=== PATIENT | female | born 1975 | race Two or more races ===

== ENCOUNTER 2021-06-01 21:15 | Inpatient (IN) | payer SELFPAY ==
[~2021-06-01 21:15] MED LIST: Iopamidol 370 76% 100 ML VIAL ONE
[2021-06-01 22:17] LABS: #Monocytes 1.2 thou/uL (0.11-0.59); #Neutrophils 5.6 thou/uL (1.40-6.50); %Basophils 0.3 % (0.0-1.0); %Eosinophils 0.1 % (0.0-10.0); %Lymphocytes 22.4 % (21.0-51.0); %Monocytes 13.8 % (0.0-10.0); %Neutrophils 63.3 % (42.0-75.0); Hemoglobin 6.1 g/dL (12.0-16.0); Mean Corpuscular HGB CONC 30.9 g/dL (32.0-36.0); Mean Corpuscular Hemoglobin 26.7 pg (27.0-31.0); Mean Corpuscular Volume 86.4 fL (78.0-98.0); Platelet Count 152 thou/uL (130-400); RBC Distribution Width 19.5 % (11.5-14.5); Red Blood Cell (RBC) Count 2.27 mill/uL (4.20-5.40); White Blood Cell (WBC) Count 8.9 thou/uL (4.8-10.8)
[2021-06-01 22:22] LABS: BHCG - Serum Negative (NEGATIVE); Pregs Control Background? CLEAR/WHITE (CLR/WHITE); Pregs Control Bar Appear? YES (CONTROL BAR)
[2021-06-01 22:39] LABS: ALT (SGPT) 23 U/L (8-55); AST (SGOT) 71 U/L (5-34); Albumin 1.9 g/dL (3.5-5.0); Alkaline Phosphatase 200 U/L (40-110); Anion Gap 13 mmol/L (10-20); BUN (Urea Nitrogen) 13 mg/dL (7.0-18.7); Bilirubin, Total 3.5 mg/dL (0.2-1.2); Calc. Creatinine Clearance 0 mL/min (70-130); Calcium 7.6 mg/dL (7.8-10.44); Carbon Dioxide 16 mmol/L (22-29); Chloride 105 mmol/L (98-107); Globulin 4.9 g/dL (2.4-3.5); Glucose 72 mg/dL (70-105); Lipase 99 U/L (8-78); Potassium 3.7 mmol/L (3.5-5.1); Protein, Total 6.8 g/dL (6.0-8.3); Sodium 130 mmol/L (136-145)
[2021-06-02] MEDS ORDERED: Fentanyl 100 MCG/2 ML VIAL ONE (00:47)
[2021-06-02] MEDS ORDERED: Ondansetron PF 4 MG/2 ML Vial ONE ×2 (00:47→13:12)
[2021-06-02 02:11] VITALS: BMI 21.4
[2021-06-02] MEDS ORDERED: Acetaminophen 325 MG TAB PO PRN (04:22)
[2021-06-02 04:26] LABS: Bilirubin Negative (Negative); Blood, Urine Negative (Negative); Clarity Clear (Clear); Glucose, Urine (Dipstick) Normal (Negative); Ketone, Urine Negative (Negative); Leukocyte Negative Leu/uL (Negative); Nitrite Negative (Negative); Protein, Urine (Dipstick) 30 mg/dL (Neg-Trace); WBC/HPF 0-3 HPF (0-3); pH, Urine 6.5 (5.0-9.0)
[2021-06-02 04:32] LABS: Specific Gravity, Urine Greater than 1.036 (1.002-1.036)
[2021-06-02 04:39] LABS: Bacteria/HPF None Seen HPF (None Seen); RBC/HPF 0-3 HPF (0-3)
[2021-06-02] MEDS ORDERED: traMADol HCl 50 MG TAB PO SCH (05:00)
[2021-06-02] MEDS ORDERED: traMADol HCl 50 MG TAB ONE (05:55)
[2021-06-02 06:30] LABS: INR-International Normal Ratio 1.2; Prothrombin Time 15.8 sec (12.0-14.7)
[2021-06-02 06:31] LABS: PTT 45.8 sec (22.9-36.1)
[2021-06-02] MEDS ORDERED: Furosemide 20 MG/2 ML VIAL SLOW IVP SCH (07:45)
[2021-06-02 08:30] LABS: Iron 9 ug/dL (50-170); Iron Binding Capacity, Total 214 mcg/dL (265-497)
[2021-06-02] MEDS ORDERED: Lidocaine 1% PF 5 ML VIAL ONE (09:32)
[2021-06-02] MEDS ORDERED: Sodium Bicarbonate 2.5 MEQ/5 ML VIAL ONE (09:32)
[2021-06-02 11:19] LABS: #Lymphocytes 1.5 thou/uL (1.20-3.40); #Monocytes 0.7 thou/uL (0.11-0.59); #Neutrophils 3.7 thou/uL (1.40-6.50); %Basophils 0.2 % (0.0-1.0); %Eosinophils 0.1 % (0.0-10.0); %Monocytes 11.2 % (0.0-10.0); %Neutrophils 62.5 % (42.0-75.0); Hemoglobin 8.8 g/dL (12.0-16.0); Mean Corpuscular HGB CONC 31.1 g/dL (32.0-36.0); Mean Corpuscular Hemoglobin 27.4 pg (27.0-31.0); Mean Corpuscular Volume 88.3 fL (78.0-98.0); Mean Platelet Volume 8.2 fL (7.4-10.4); Platelet Count 126 thou/uL (130-400); RBC Distribution Width 17.9 % (11.5-14.5); Red Blood Cell (RBC) Count 3.22 mill/uL (4.20-5.40); White Blood Cell (WBC) Count 5.9 thou/uL (4.8-10.8)
[2021-06-02 12:00] LABS: WBC/Nucleated-Auto (BF) 238 /cu.mm
[2021-06-02 12:10] LABS: BF Color Yellow; Body Fluid Source Ascites Body Fluid; Clarity Hazy (Clear); RBC Count-Automated (BF) 5 /cu.mm; Tube # EDTA
[2021-06-02 12:11] LABS: BF Segmented Neutrophils 7 %; Lymphocytes 6 %
[2021-06-02 12:12] LABS: Cell Count Non Hematic 87 %
[2021-06-02] MEDS: Ondansetron PF 4 MG/2 ML Vial IVP PRN ×2 (13:12→21:38)
[2021-06-02] MEDS ORDERED: Furosemide 20 MG/2 ML VIAL ONE (14:19)
[2021-06-02] MEDS ORDERED: Famotidine 20 MG TAB ONE (14:19)
[2021-06-02] MEDS: Famotidine 20 MG TAB PO SCH ×2 (14:21→20:32)
[2021-06-02] MEDS: Furosemide 20 MG/2 ML VIAL SLOW IVP SCH (14:24)
[2021-06-02] MEDS ORDERED: Iron Sucrose Complex 200 MG in Sodium Chloride 0.9% 100 ML IVPB SCH (16:30)
[2021-06-02] MEDS ORDERED: Iron, Sodium Ferric Gluconate 250 MG in Sodium Chloride 0.9% 250 ML 250 ML IVPB SCH (16:30)
[2021-06-02 16:43] LABS: Hemoglobin 9.2 g/dL (12.0-16.0)
[2021-06-02 22:07] LABS: SARS-CoV-2 PCR by NAA Indeterminate (NotDetected)
[2021-06-03] MEDS: Furosemide 20 MG/2 ML VIAL SLOW IVP SCH ×2 (05:15→15:11)
[2021-06-03 05:46] LABS: Anion Gap 12 mmol/L (10-20); BUN (Urea Nitrogen) 14 mg/dL (7.0-18.7); Calc. Creatinine Clearance 85 mL/min (70-130); Calcium 7.3 mg/dL (7.8-10.44); Carbon Dioxide 15 mmol/L (22-29); Chloride 107 mmol/L (98-107); Glucose 96 mg/dL (70-105); Potassium 3.7 mmol/L (3.5-5.1); Sodium 130 mmol/L (136-145)
[2021-06-03 06:02] LABS: #Lymphocytes 1.7 thou/uL (1.20-3.40); #Neutrophils 10.3 thou/uL (1.40-6.50); %Basophils 0.1 % (0.0-1.0); %Eosinophils 0.1 % (0.0-10.0); %Monocytes 7.8 % (0.0-10.0); Band 1 % (5-11); Hemoglobin 11.7 g/dL (12.0-16.0); Lymphocytes 5 % (21-51); MDiff Complete? YES; Mean Corpuscular HGB CONC 31.9 g/dL (32.0-36.0); Mean Corpuscular Hemoglobin 27.7 pg (27.0-31.0); Mean Corpuscular Volume 86.7 fL (78.0-98.0); Mean Platelet Volume 9.2 fL (7.4-10.4); Monocytes 6 % (0-10); Neutrophil 88 % (42-75); Platelet Count 100 thou/uL (130-400); Platelet Morphology Comment Appears Decreased; RBC Distribution Width 18.2 % (11.5-14.5); RBC Morphology Normal; Red Blood Cell (RBC) Count 4.23 mill/uL (4.20-5.40)
[2021-06-03] MEDS: Ferrous Sulfate 325 MG TAB PO SCH (08:32)
[2021-06-03] MEDS: Pantoprazole 40 MG VIAL IVP SCH (08:33)
[2021-06-03 09:15] LABS: ALT (SGPT) 22 U/L (8-55); AST (SGOT) 68 U/L (5-34); Albumin 1.7 g/dL (3.5-5.0); Alkaline Phosphatase 169 U/L (40-110); Bilirubin, Direct 2.6 mg/dL (0.1-0.3); Bilirubin, Total 3.7 mg/dL (0.2-1.2); Protein, Total 6.2 g/dL (6.0-8.3)
[2021-06-03] MEDS ORDERED: Magnevist 469MG/ML 20 ML VIAL ONE (09:57)
[2021-06-03] MEDS ORDERED: GoLYTELY 4,000 ml Bottle PO SCH (13:30)
[2021-06-03] MEDS: Ondansetron PF 4 MG/2 ML Vial IVP PRN (21:53)
[2021-06-04 05:20] LABS: SARS-CoV-2 NAA Rapid Test Not Detected (NotDetected)
[2021-06-04] MEDS: Furosemide 20 MG/2 ML VIAL SLOW IVP SCH ×2 (05:52→14:42)
[2021-06-04 06:22] LABS: #Lymphocytes 1.8 thou/uL (1.20-3.40); #Monocytes 0.9 thou/uL (0.11-0.59); #Neutrophils 4.8 thou/uL (1.40-6.50); %Basophils 0.2 % (0.0-1.0); %Eosinophils 0.2 % (0.0-10.0); %Lymphocytes 24.4 % (21.0-51.0); %Monocytes 11.3 % (0.0-10.0); %Neutrophils 63.9 % (42.0-75.0); Hemoglobin 8.7 g/dL (12.0-16.0); Mean Corpuscular HGB CONC 31.3 g/dL (32.0-36.0); Mean Corpuscular Hemoglobin 27.6 pg (27.0-31.0); Mean Corpuscular Volume 88.3 fL (78.0-98.0); Mean Platelet Volume 8.8 fL (7.4-10.4); Platelet Count 126 thou/uL (130-400); RBC Distribution Width 18.4 % (11.5-14.5); Red Blood Cell (RBC) Count 3.14 mill/uL (4.20-5.40); White Blood Cell (WBC) Count 7.5 thou/uL (4.8-10.8)
[2021-06-04 06:45] LABS: ALT (SGPT) 20 U/L (8-55); AST (SGOT) 64 U/L (5-34); Albumin 1.5 g/dL (3.5-5.0); Alkaline Phosphatase 146 U/L (40-110); Anion Gap 12 mmol/L (10-20); BUN (Urea Nitrogen) 17 mg/dL (7.0-18.7); Bilirubin, Direct 2.2 mg/dL (0.1-0.3); Bilirubin, Total 3.2 mg/dL (0.2-1.2); Calc. Creatinine Clearance 77 mL/min (70-130); Calcium 7.4 mg/dL (7.8-10.44); Carbon Dioxide 19 mmol/L (22-29); Chloride 104 mmol/L (98-107); Globulin 3.9 g/dL (2.4-3.5); Glucose 72 mg/dL (70-105); Protein, Total 5.4 g/dL (6.0-8.3); Sodium 132 mmol/L (136-145)
[2021-06-04] MEDS ORDERED: Potassium Chloride 20 MEQ TAB PO SCH (08:00)
[2021-06-04] MEDS ORDERED: Electrolyte Replacement Protocol 1 EACH FS SCH (08:00)
[2021-06-04] MEDS ORDERED: Potassium Chloride 40 MEQ in Sodium Chloride 0.9% 250 ML 250 ML IVPB SCH (08:00)
[2021-06-04] MEDS ORDERED: Midazolam HCl 2 mg/2 ml Vial ONE (08:05)
[2021-06-04] MEDS ORDERED: Lidocaine 1% PF 5 ML VIAL ONE (08:20)
[2021-06-04] MEDS ORDERED: PROPOFOL 200 MG/20 ML VIAL ONE (08:20)
[2021-06-04] MEDS ORDERED: Promethazine HCl 25 MG/ML VIAL IVPB PRN (08:40)
[2021-06-04] MEDS ORDERED: Promethazine HCl 25 MG/ML VIAL IM PRN (08:40)
[2021-06-04] MEDS ORDERED: Ondansetron HCl/PF 4 MG/2 ML Vial IVP PRN (08:40)
[2021-06-04] MEDS ORDERED: Albumin 25% 25 GM/100 ML BOT IVPB SCH (08:45)
[2021-06-04] MEDS ORDERED: GoLYTELY 4,000 ml Bottle PO SCH (08:45)
[2021-06-04] MEDS: Pantoprazole 40 MG VIAL IVP SCH (09:30)
[2021-06-04] MEDS: Ferrous Sulfate 325 MG TAB PO SCH (09:30)
[2021-06-04] MEDS: Spironolactone 25 MG TAB PO SCH (18:35)
[2021-06-05 06:24] LABS: ALT (SGPT) 18 U/L (8-55); AST (SGOT) 56 U/L (5-34); Albumin 2.4 g/dL (3.5-5.0); Alkaline Phosphatase 125 U/L (40-110); Anion Gap 12 mmol/L (10-20); BUN (Urea Nitrogen) 14 mg/dL (7.0-18.7); Bilirubin, Total 3.7 mg/dL (0.2-1.2); Calc. Creatinine Clearance 104 mL/min (70-130); Calcium 7.8 mg/dL (7.8-10.44); Carbon Dioxide 21 mmol/L (22-29); Chloride 108 mmol/L (98-107); Globulin 3.2 g/dL (2.4-3.5); Glucose 67 mg/dL (70-105); Protein, Total 5.6 g/dL (6.0-8.3); Sodium 139 mmol/L (136-145)
[2021-06-05] MEDS: Furosemide 20 MG/2 ML VIAL SLOW IVP SCH (06:26)
[2021-06-05 06:29] LABS: Potassium 2.4 mmol/L (3.5-5.1)
[2021-06-05] MEDS ORDERED: Potassium Chloride 20 MEQ TAB PO SCH (06:45)
[2021-06-05 07:03] LABS: Magnesium 1.5 mg/dL (1.6-2.6)
[2021-06-05 07:09] LABS: #Lymphocytes 1.4 thou/uL (1.20-3.40); #Monocytes 0.5 thou/uL (0.11-0.59); #Neutrophils 2.8 thou/uL (1.40-6.50); %Basophils 0.3 % (0.0-1.0); %Eosinophils 0.3 % (0.0-10.0); %Lymphocytes 28.6 % (21.0-51.0); %Monocytes 10.8 % (0.0-10.0); Hemoglobin 7.3 g/dL (12.0-16.0); Mean Corpuscular HGB CONC 31.3 g/dL (32.0-36.0); Mean Corpuscular Hemoglobin 27.5 pg (27.0-31.0); Mean Corpuscular Volume 87.7 fL (78.0-98.0); Mean Platelet Volume 8.5 fL (7.4-10.4); Platelet Count 112 thou/uL (130-400); RBC Distribution Width 18.6 % (11.5-14.5); Red Blood Cell (RBC) Count 2.66 mill/uL (4.20-5.40); White Blood Cell (WBC) Count 4.7 thou/uL (4.8-10.8)
[2021-06-05] MEDS ORDERED: Magnesium 2 GM/50 ML 2 GM in Premix Bag 1 BAG IVPB SCH (07:30)
[2021-06-05] MEDS: Potassium Chloride 20 MEQ in Premix Bag 1 BAG IVPB SCH ×2 (09:59→10:09)
[2021-06-05] MEDS: Spironolactone 25 MG TAB PO SCH ×2 (10:09→17:19)
[2021-06-05] MEDS: Pantoprazole 40 MG VIAL IVP SCH (10:10)
[2021-06-05] MEDS: Ferrous Sulfate 325 MG TAB PO SCH (10:10)
[2021-06-05] MEDS ORDERED: Potassium Phosphate 15 MMOL in Sodium Chloride 0.9% 250 ML 250 ML IVPB SCH (11:15)
[2021-06-05] MEDS: Potassium Bicarbonate/Cit Ac 20 MEQ TAB PO SCH ×2 (11:42→17:19)
[2021-06-05] MEDS ORDERED: PROPOFOL 200 MG/20 ML VIAL ONE (12:20)
[2021-06-05] MEDS: Furosemide 20 MG TAB PO SCH (14:25)
[2021-06-05] MEDS: traMADol HCl 50 MG TAB PO PRN (14:25)
[2021-06-06 06:20] LABS: #Lymphocytes 1.5 thou/uL (1.20-3.40); #Monocytes 0.6 thou/uL (0.11-0.59); #Neutrophils 2.4 thou/uL (1.40-6.50); %Basophils 0.4 % (0.0-1.0); %Eosinophils 0.2 % (0.0-10.0); %Lymphocytes 33.5 % (21.0-51.0); %Monocytes 12.3 % (0.0-10.0); %Neutrophils 53.6 % (42.0-75.0); Hemoglobin 6.9 g/dL (12.0-16.0); Mean Corpuscular HGB CONC 30.9 g/dL (32.0-36.0); Mean Corpuscular Hemoglobin 27.3 pg (27.0-31.0); Mean Corpuscular Volume 88.4 fL (78.0-98.0); Mean Platelet Volume 8.3 fL (7.4-10.4); Platelet Count 108 thou/uL (130-400); RBC Distribution Width 19.1 % (11.5-14.5); Red Blood Cell (RBC) Count 2.54 mill/uL (4.20-5.40); White Blood Cell (WBC) Count 4.5 thou/uL (4.8-10.8)
[2021-06-06 06:27] LABS: Reticulocyte Count 2.3 % (0.5-1.5)
[2021-06-06 06:29] LABS: Anion Gap 11 mmol/L (10-20); BUN (Urea Nitrogen) 10 mg/dL (7.0-18.7); Calc. Creatinine Clearance 122 mL/min (70-130); Calcium 7.3 mg/dL (7.8-10.44); Carbon Dioxide 20 mmol/L (22-29); Chloride 109 mmol/L (98-107); Glucose 74 mg/dL (70-105); Magnesium 1.8 mg/dL (1.6-2.6); Sodium 137 mmol/L (136-145)
[2021-06-06 06:32] LABS: Potassium 2.7 mmol/L (3.5-5.1)
[2021-06-06 06:49] LABS: HBCM Index 0.07 S/CO (0-0.79); HBSAg Index 0.23 S/CO (0-0.99); Hep A IgM AB Non-Reactive (NonReactive); Hep A IgM S/CO 0.15 S/CO (0-0.79); Hep B Surf Ag Non-Reactive S/CO (NonReactive); Hep C IgG Ab Non-Reactive (NonReactive); Hep C Index 0.14 S/CO (0-0.79); Hepatitis B Core IgM Abs Non-Reactive (NonReactive)
[2021-06-06] MEDS ORDERED: Electrolyte Replacement Protocol FS PRN (07:00)
[2021-06-06] MEDS ORDERED: Potassium Chloride 20 MEQ TAB PO SCH (07:15)
[2021-06-06] MEDS ORDERED: Magnesium 2 GM/50 ML 2 GM in Premix Bag 1 BAG IVPB SCH (07:15)
[2021-06-06] MEDS ORDERED: Potassium Phosphate 30 MMOL in Sodium Chloride 0.9% 500 ML IVPB SCH (07:45)
[2021-06-06] MEDS: Spironolactone 25 MG TAB PO SCH (07:50)
[2021-06-06] MEDS: Furosemide 20 MG TAB PO SCH (07:50)
[2021-06-06] MEDS: Potassium Bicarbonate/Cit Ac 20 MEQ TAB PO SCH ×2 (07:51→12:42)
[2021-06-06] MEDS: Ferrous Sulfate 325 MG TAB PO SCH (07:52)
[2021-06-06] MEDS: Pantoprazole 40 MG VIAL IVP SCH (07:52)
[2021-06-06] MEDS ORDERED: Furosemide 20 MG TAB PO SCH (14:00)
[2021-06-06 17:46] LABS: ANA Symphony (Qualitative) Equivocal: See Note (Negative); ANA Symphony (Quantitative) 0.9 Ratio (< 0.7 Negative); EliA Vaculitis New Method **** NEW METHOD ****; Mitochondrial Ab 4.7 U/mL (<4 Negative); dsDNA IgG Antibody 2.7 IU/mL (<10 Negative)
[2021-06-06] MEDS: traMADol HCl 50 MG TAB PO PRN ×2 (18:19→23:29)
[2021-06-06] MEDS ORDERED: traMADol HCl 50 MG TAB PO SCH (23:30)
[2021-06-07 05:40] LABS: #Lymphocytes 1.8 thou/uL (1.20-3.40); #Monocytes 0.6 thou/uL (0.11-0.59); #Neutrophils 3.9 thou/uL (1.40-6.50); %Basophils 0.1 % (0.0-1.0); %Eosinophils 0.2 % (0.0-10.0); %Lymphocytes 28.5 % (21.0-51.0); %Monocytes 9.3 % (0.0-10.0); %Neutrophils 61.9 % (42.0-75.0); Hemoglobin 9.1 g/dL (12.0-16.0); Mean Corpuscular HGB CONC 31.5 g/dL (32.0-36.0); Mean Corpuscular Hemoglobin 27.8 pg (27.0-31.0); Mean Corpuscular Volume 88.5 fL (78.0-98.0); Mean Platelet Volume 8.6 fL (7.4-10.4); Platelet Count 124 thou/uL (130-400); RBC Distribution Width 18.7 % (11.5-14.5); Red Blood Cell (RBC) Count 3.25 mill/uL (4.20-5.40); White Blood Cell (WBC) Count 6.3 thou/uL (4.8-10.8)
[2021-06-07 06:17] LABS: Anion Gap 10 mmol/L (10-20); BUN (Urea Nitrogen) 9 mg/dL (7.0-18.7); Calc. Creatinine Clearance 122 mL/min (70-130); Calcium 7.6 mg/dL (7.8-10.44); Carbon Dioxide 25 mmol/L (22-29); Chloride 107 mmol/L (98-107); Glucose 62 mg/dL (70-105); Magnesium 1.7 mg/dL (1.6-2.6); Sodium 139 mmol/L (136-145)
[2021-06-07 06:22] LABS: Potassium 2.9 mmol/L (3.5-5.1)
[2021-06-07] MEDS ORDERED: Potassium Chloride 40 MEQ in Sodium Chloride 0.9% 250 ML 250 ML IVPB SCH (06:45)
[2021-06-07] MEDS ORDERED: Potassium Bicarbonate/Cit Ac 20 MEQ TAB PO SCH (07:00)
[2021-06-07] MEDS ORDERED: Magnesium 2 GM/50 ML 2 GM in Premix Bag 1 BAG IVPB SCH (07:00)
[2021-06-07] MEDS ORDERED: Lidocaine 1% PF 5 ML VIAL ONE (08:23)
[2021-06-07] MEDS ORDERED: Sodium Bicarbonate 2.5 MEQ/5 ML VIAL ONE (08:23)
[2021-06-07] MEDS ORDERED: Potassium Phosphate 30 MMOL in Sodium Chloride 0.9% 500 ML IVPB SCH (09:00)
[2021-06-07] MEDS: Potassium Bicarbonate/Cit Ac 20 MEQ TAB PO SCH ×4 (10:27→20:51)
[2021-06-07] MEDS: Ferrous Sulfate 325 MG TAB PO SCH (11:15)
[2021-06-07] MEDS: Spironolactone 100 MG TAB PO SCH (11:15)
[2021-06-07] MEDS: Pantoprazole 40 MG VIAL IVP SCH (11:16)
[2021-06-07] MEDS ORDERED: diphenhydrAMINE 50 MG/ML VIAL IVP SCH (12:27)
[2021-06-07] MEDS ORDERED: Famotidine 20 MG TAB PO SCH (12:30)
[2021-06-07] MEDS ORDERED: diphenhydrAMINE 50 MG/ML VIAL ONE (12:34)
[2021-06-07] MEDS: Albumin 25% 25 GM/100 ML BOT IVPB SCH ×2 (12:50→18:36)
[2021-06-07] MEDS ORDERED: Loratadine 10 MG TAB PO SCH (17:00)
[2021-06-07] MEDS: Furosemide 40 MG TAB PO SCH (17:18)
[2021-06-07] MEDS: traMADol HCl 50 MG TAB PO PRN (18:53)
[2021-06-07] MEDS ORDERED: Ketorolac Tromethamine 30 MG/ML VIAL IVP SCH (23:15)
[2021-06-08] MEDS: Potassium Bicarbonate/Cit Ac 20 MEQ TAB PO SCH ×3 (01:29→07:59)
[2021-06-08 06:53] LABS: Hemoglobin 8.3 g/dL (12.0-16.0); Mean Corpuscular HGB CONC 30.9 g/dL (32.0-36.0); Mean Corpuscular Hemoglobin 27.9 pg (27.0-31.0); Mean Corpuscular Volume 90.2 fL (78.0-98.0); Mean Platelet Volume 8.6 fL (7.4-10.4); Platelet Count 116 thou/uL (130-400); RBC Distribution Width 18.9 % (11.5-14.5); Red Blood Cell (RBC) Count 2.98 mill/uL (4.20-5.40); White Blood Cell (WBC) Count 6.7 thou/uL (4.8-10.8)
[2021-06-08 06:57] LABS: #Lymphocytes 1.7 thou/uL (1.20-3.40); #Monocytes 0.8 thou/uL (0.11-0.59); #Neutrophils 4.2 thou/uL (1.40-6.50); %Basophils 0.3 % (0.0-1.0); %Eosinophils 0.3 % (0.0-10.0); %Lymphocytes 25.2 % (21.0-51.0); %Neutrophils 62.1 % (42.0-75.0)
[2021-06-08 07:15] LABS: ALT (SGPT) 13 U/L (8-55); AST (SGOT) 35 U/L (5-34); Albumin 2.3 g/dL (3.5-5.0); Alkaline Phosphatase 114 U/L (40-110); Anion Gap 9 mmol/L (10-20); BUN (Urea Nitrogen) 9 mg/dL (7.0-18.7); Bilirubin, Total 2.9 mg/dL (0.2-1.2); Calc. Creatinine Clearance 117 mL/min (70-130); Carbon Dioxide 26 mmol/L (22-29); Chloride 106 mmol/L (98-107); Globulin 2.9 g/dL (2.4-3.5); Glucose 71 mg/dL (70-105); Magnesium 1.9 mg/dL (1.6-2.6); Potassium 3.7 mmol/L (3.5-5.1); Protein, Total 5.2 g/dL (6.0-8.3); Sodium 137 mmol/L (136-145)
[2021-06-08] MEDS: Furosemide 40 MG TAB PO SCH ×2 (07:58→14:20)
[2021-06-08] MEDS: Ferrous Sulfate 325 MG TAB PO SCH (07:58)
[2021-06-08] MEDS: Spironolactone 100 MG TAB PO SCH (07:59)
[2021-06-08 08:10] LABS: Hypochromia SLIGHT = 6-15 cells (100X) (0-5/hpf); MDiff Complete? YES; Platelet Morphology Comment Appears Decreased; Polychromasia SLIGHT = 2-3 cells (100X) (0-2/hpf); Target Cells SLIGHT = 2-5 cells (100X) (0-1/hpf)
[2021-06-08 11:23] VITALS: BP 113/69; TEMP 97.7
[2021-06-08 14:03] LABS: Smooth Muscle Total ABS 17 Units (0-19)
[2021-06-08] MEDS: traMADol HCl 50 MG TAB PO PRN (15:28)
[2021-06-09 14:39] LABS: Alpha-1-Antitrypsin 137 mg/dL (101-187)
== END 2021-06-08 15:31 | disposition home or self-care (01) | DRG 432 ==
LOC: ERS 21:15 → ERHOLD 06-02 00:28 → T4-A 06-02 15:24
PROVIDERS: ADMIT Internal Medicine; ATTEND Internal Medicine
PROC: 30233N1 Transfusion of Nonautologous Red Blood Cells into Peripheral Vein, Percutaneous Approach (ICD-10-PCS; principal; 2021-06-02)
PROC: 0W9G3ZZ Drainage of Peritoneal Cavity, Percutaneous Approach (ICD-10-PCS; 2021-06-02)
PROC: 0W9G3ZX Drainage of Peritoneal Cavity, Percutaneous Approach, Diagnostic (ICD-10-PCS; 2021-06-02)
PROC: 0DB78ZX Excision of Stomach, Pylorus, Via Natural or Artificial Opening Endoscopic, Diagnostic (ICD-10-PCS; 2021-06-04)
PROC: 0DJD8ZZ Inspection of Lower Intestinal Tract, Via Natural or Artificial Opening Endoscopic (ICD-10-PCS; 2021-06-05)
PROC: 0W9G3ZZ Drainage of Peritoneal Cavity, Percutaneous Approach (ICD-10-PCS; 2021-06-07)
DX: K70.31 Alcoholic cirrhosis of liver with ascites (principal); K28.4 Chronic or unspecified gastrojejunal ulcer with hemorrhage; E43 Unspecified severe protein-calorie malnutrition; D62 Acute posthemorrhagic anemia; E87.1 Hypo-osmolality and hyponatremia; E87.2 Acidosis; K76.6 Portal hypertension; Z20.822 Contact with and (suspected) exposure to COVID-19; F41.9 Anxiety disorder, unspecified; K21.9 Gastro-esophageal reflux disease without esophagitis; F32.A Depression, unspecified; N63.10 Unspecified lump in the right breast, unspecified quadrant; K76.9 Liver disease, unspecified; E80.6 Other disorders of bilirubin metabolism; R13.12 Dysphagia, oropharyngeal phase; D50.9 Iron deficiency anemia, unspecified; Z88.5 Allergy status to narcotic agent; Z79.899 Other long term (current) drug therapy; Z90.49 Acquired absence of other specified parts of digestive tract; Z68.21 Body mass index [BMI] 21.0-21.9, adult; E87.6 Hypokalemia; E83.42 Hypomagnesemia
CPT/HCPCS: 36415; 36430; 49083; 70553; 74177; 80048; 80053; 80074; 80076; 81003; 81015; 82042; 82103; 82104; 82105; 82728; 83516; 83540; 83550; 83605; 83690; 83735; 83880; 84157; 84703; 85025; 85046; 85060; 85610; 85730; 86015; 86038; 86225; 86850; 86900; 86901; 87070; 87205; 88112; 88305; 89051; 96374; 96375; A9579; C9113; J1200; J1885; J1940; J2250; J2405; J2704; J2916; J3010; J3475; J3480; J7030; J7050; J7620; P9016; P9047; Q9967; U0002; U0003; U0005

== ENCOUNTER 2021-07-17 22:37 | Emergency (ER) | payer SELFPAY ==
[2021-07-17 23:07] LABS: #Eosinphils 0.1 thou/uL (0.0-0.7); #Lymphocytes 2.1 thou/uL (1.20-3.40); #Monocytes 0.5 thou/uL (0.11-0.59); #Neutrophils 5.3 thou/uL (1.40-6.50); %Basophils 0.3 % (0.0-1.0); %Eosinophils 0.9 % (0.0-10.0); %Lymphocytes 26.4 % (21.0-51.0); %Monocytes 6.2 % (0.0-10.0); %Neutrophils 66.2 % (42.0-75.0); Hemoglobin 9.5 g/dL (12.0-16.0); Mean Corpuscular HGB CONC 31.3 g/dL (32.0-36.0); Mean Corpuscular Hemoglobin 28.5 pg (27.0-31.0); Mean Corpuscular Volume 91.1 fL (78.0-98.0); Mean Platelet Volume 9.7 fL (7.4-10.4); Platelet Count 167 thou/uL (130-400); RBC Distribution Width 18.4 % (11.5-14.5); Red Blood Cell (RBC) Count 3.34 mill/uL (4.20-5.40)
[2021-07-17 23:30] LABS: ALT (SGPT) 16 U/L (8-55); AST (SGOT) 58 U/L (5-34); Albumin 2.5 g/dL (3.5-5.0); Alkaline Phosphatase 343 U/L (40-110); Anion Gap 13 mmol/L (10-20); BUN (Urea Nitrogen) 9 mg/dL (7.0-18.7); Bilirubin, Total 1.5 mg/dL (0.2-1.2); Calc. Creatinine Clearance 0 mL/min (70-130); Carbon Dioxide 20 mmol/L (22-29); Chloride 107 mmol/L (98-107); Globulin 4.8 g/dL (2.4-3.5); Glucose 62 mg/dL (70-105); Lipase 67 U/L (8-78); Potassium 3.3 mmol/L (3.5-5.1); Protein, Total 7.3 g/dL (6.0-8.3); Sodium 137 mmol/L (136-145)
== END 2021-07-17 23:51 | disposition left against medical advice (07) ==
LOC: ERS 22:37
DX: Z53.21 Procedure and treatment not carried out due to patient leaving prior to being seen by health care provider (principal)
CPT/HCPCS: 36415; 80053; 82140; 83690; 85025

== ENCOUNTER 2021-07-29 11:26 | Inpatient (IN) | payer OTHER, SELFPAY ==
[2021-07-29 11:34] VITALS: BMI 21.9
[2021-07-29] MEDS ORDERED: Ondansetron PF 4 MG/2 ML Vial IVP PRN (11:34)
[2021-07-29] MEDS ORDERED: Lorazepam 2 MG/ML VIAL IM PRN (12:14)
[2021-07-29] MEDS ORDERED: Lorazepam 1 MG TAB PO PRN (12:14)
[2021-07-29] MEDS ORDERED: Octreotide Acetate 1,250 MCG in Sodium Chloride 0.9% 250 ML 250 ML IVPB SCH (12:15)
[2021-07-29] MEDS: Lorazepam 1 MG TAB PO SCH ×3 (15:02→21:44)
[2021-07-29] MEDS: Thiamine HCl 200 MG/2 ML VIAL SLOW IVP SCH (15:10)
[2021-07-29 20:54] LABS: SARS-CoV-2 PCR by NAA Not Detected (NotDetected)
[2021-07-29] MEDS: Pantoprazole 40 MG VIAL IVP SCH (21:36)
[2021-07-29] MEDS: Ondansetron ODT 4 MG TAB PO PRN (21:43)
[2021-07-29 23:40] LABS: Amphetamine Not Detected (NotDetected); Barbiturates Screen Not Detected (NotDetected); Benzodiazepine Screen Not Detected (NotDetected); Cocaine Metabolite Screen Not Detected (NotDetected); Methadone Not Detected (NotDetected); Methamphetamine Not Detected (NotDetected); Opiate Screen Not Detected (NotDetected); Oxycodone Screen Not Detected (NotDetected); Phencyclidine (PCP) Not Detected (NotDetected); THC/Cannabinoid Screen Not Detected (NotDetected); Tricyclic Screen Not Detected (NotDetected)
[2021-07-29 23:55] LABS: Legionella Urinary Ag Negative (Negative); Strep pneumo Urine Ag NEGATIVE (NEGATIVE)
[2021-07-30] MEDS: Lorazepam 1 MG TAB PO SCH ×3 (05:37→16:44)
[2021-07-30 05:54] LABS: #Eosinphils 0.1 thou/uL (0.0-0.7); #Lymphocytes 1.5 thou/uL (1.20-3.40); #Monocytes 0.4 thou/uL (0.11-0.59); #Neutrophils 3.2 thou/uL (1.40-6.50); %Basophils 0.9 % (0.0-1.0); %Eosinophils 1.7 % (0.0-10.0); %Lymphocytes 28.4 % (21.0-51.0); %Monocytes 8.2 % (0.0-10.0); %Neutrophils 60.8 % (42.0-75.0); Hemoglobin 8.9 g/dL (12.0-16.0); Mean Corpuscular HGB CONC 31.7 g/dL (32.0-36.0); Mean Corpuscular Volume 91.3 fL (78.0-98.0); Mean Platelet Volume 8.9 fL (7.4-10.4); Platelet Count 155 thou/uL (130-400); RBC Distribution Width 16.5 % (11.5-14.5); Red Blood Cell (RBC) Count 3.09 mill/uL (4.20-5.40); White Blood Cell (WBC) Count 5.2 thou/uL (4.8-10.8)
[2021-07-30 06:05] LABS: INR-International Normal Ratio 1.1; Prothrombin Time 14.6 sec (12.0-14.7)
[2021-07-30 06:06] LABS: Hemoglobin A1c 3.9 % (4.0-6.0); PTT 36.5 sec (22.9-36.1)
[2021-07-30 06:20] LABS: ALT (SGPT) 13 U/L (8-55); AST (SGOT) 38 U/L (5-34); Albumin 2.4 g/dL (3.5-5.0); Alkaline Phosphatase 242 U/L (40-110); Anion Gap 11 mmol/L (10-20); BUN (Urea Nitrogen) 6 mg/dL (7.0-18.7); Bilirubin, Total 1.3 mg/dL (0.2-1.2); Calc. Creatinine Clearance 109 mL/min (70-130); Calcium 8.2 mg/dL (7.8-10.44); Carbon Dioxide 21 mmol/L (22-29); Chloride 106 mmol/L (98-107); Cholesterol 195 mg/dl (< 200 Desired); Globulin 4.2 g/dL (2.4-3.5); Glucose 86 mg/dL (70-105); HDL Cholesterol 39 mg/dL (>60 Neg Risk); LDL Cholesterol, Calculated 138 mg/dL; Magnesium 1.6 mg/dL (1.6-2.6); Potassium 3.6 mmol/L (3.5-5.1); Protein, Total 6.6 g/dL (6.0-8.3); Sodium 134 mmol/L (136-145); Triglycerides 88 mg/dL (Less than 150)
[2021-07-30 06:49] LABS: Thyroid Stimulating Hormone 1.475 uIU/mL (0.35-4.94)
[2021-07-30] MEDS ORDERED: Fentanyl 100 MCG/2 ML VIAL ONE (08:46)
[2021-07-30] MEDS ORDERED: PROPOFOL 200 MG/20 ML VIAL ONE (09:04)
[2021-07-30] MEDS: cefTRIAXone\\ROCEPHIN 2 GM in Sodium Chloride 0.9% 100 ML IVPB SCH (09:56)
[2021-07-30] MEDS: Pantoprazole 40 MG VIAL IVP SCH ×2 (10:54→21:26)
[2021-07-30] MEDS: Furosemide 40 MG TAB PO SCH ×2 (10:54→16:30)
[2021-07-30] MEDS: Folic Acid 1 MG TAB PO SCH (11:32)
[2021-07-30] MEDS: Spironolactone 100 MG TAB PO SCH (11:32)
[2021-07-30] MEDS ORDERED: Lorazepam 1 MG TAB PO PRN (12:14)
[2021-07-30] MEDS: Thiamine HCl 200 MG/2 ML VIAL SLOW IVP SCH ×2 (15:29→16:30)
[2021-07-30 18:11] LABS: BHCG - Serum Negative (NEGATIVE); Pregs Control Background? CLEAR/WHITE (CLR/WHITE); Pregs Control Bar Appear? YES (CONTROL BAR)
[2021-07-30] MEDS: Ondansetron ODT 4 MG TAB PO PRN (21:28)
[2021-07-31] MEDS: Lorazepam 1 MG TAB PO SCH ×2 (01:23→06:50)
[2021-07-31 06:24] LABS: #Basophils 0.1 thou/uL (0.0-0.2); #Eosinphils 0.1 thou/uL (0.0-0.7); #Lymphocytes 1.3 thou/uL (1.20-3.40); #Monocytes 0.5 thou/uL (0.11-0.59); #Neutrophils 3.6 thou/uL (1.40-6.50); %Basophils 1.1 % (0.0-1.0); %Lymphocytes 23.2 % (21.0-51.0); %Monocytes 9.3 % (0.0-10.0); %Neutrophils 65.4 % (42.0-75.0); Hemoglobin 8.7 g/dL (12.0-16.0); Mean Corpuscular HGB CONC 30.9 g/dL (32.0-36.0); Mean Corpuscular Hemoglobin 28.3 pg (27.0-31.0); Mean Corpuscular Volume 91.7 fL (78.0-98.0); Mean Platelet Volume 8.7 fL (7.4-10.4); Platelet Count 151 thou/uL (130-400); RBC Distribution Width 16.2 % (11.5-14.5); Red Blood Cell (RBC) Count 3.08 mill/uL (4.20-5.40); White Blood Cell (WBC) Count 5.5 thou/uL (4.8-10.8)
[2021-07-31 06:43] LABS: ALT (SGPT) 9 U/L (8-55); AST (SGOT) 29 U/L (5-34); Albumin 2.4 g/dL (3.5-5.0); Alkaline Phosphatase 224 U/L (40-110); Anion Gap 7 mmol/L (10-20); BUN (Urea Nitrogen) 7 mg/dL (7.0-18.7); Bilirubin, Total 0.9 mg/dL (0.2-1.2); Calc. Creatinine Clearance 106 mL/min (70-130); Calcium 7.9 mg/dL (7.8-10.44); Carbon Dioxide 27 mmol/L (22-29); Chloride 105 mmol/L (98-107); Globulin 3.9 g/dL (2.4-3.5); Glucose 89 mg/dL (70-105); Magnesium 1.6 mg/dL (1.6-2.6); Potassium 3.3 mmol/L (3.5-5.1); Protein, Total 6.3 g/dL (6.0-8.3); Sodium 136 mmol/L (136-145)
[2021-07-31] MEDS: cefTRIAXone\\ROCEPHIN 2 GM in Sodium Chloride 0.9% 100 ML IVPB SCH (08:43)
[2021-07-31] MEDS: Spironolactone 100 MG TAB PO SCH (08:43)
[2021-07-31] MEDS: Pantoprazole 40 MG VIAL IVP SCH ×2 (08:43→20:10)
[2021-07-31] MEDS: Folic Acid 1 MG TAB PO SCH (08:43)
[2021-07-31] MEDS: Furosemide 40 MG TAB PO SCH ×2 (08:43→14:57)
[2021-07-31] MEDS: Lorazepam 0.5 MG TAB PO SCH ×2 (12:13→18:04)
[2021-07-31] MEDS: Thiamine HCl 200 MG/2 ML VIAL SLOW IVP SCH (12:13)
[2021-07-31] MEDS ORDERED: Lorazepam 1 MG TAB PO PRN (12:14)
[2021-07-31] MEDS: Ondansetron ODT 4 MG TAB PO PRN (12:44)
[2021-07-31] MEDS ORDERED: Acetaminophen 325 MG TAB PO PRN (20:37)
[2021-07-31] MEDS: traMADol HCl 50 MG TAB PO PRN (21:21)
[2021-08-01] MEDS: Lorazepam 0.5 MG TAB PO SCH ×2 (00:07→06:11)
[2021-08-01] MEDS: Pantoprazole 40 MG VIAL IVP SCH (08:33)
[2021-08-01] MEDS: Spironolactone 100 MG TAB PO SCH (08:33)
[2021-08-01] MEDS: Furosemide 40 MG TAB PO SCH (08:33)
[2021-08-01] MEDS: cefTRIAXone\\ROCEPHIN 2 GM in Sodium Chloride 0.9% 100 ML IVPB SCH (08:33)
[2021-08-01] MEDS: Folic Acid 1 MG TAB PO SCH (08:34)
[2021-08-01] MEDS ORDERED: Lorazepam 0.5 MG TAB PO PRN (12:14)
[2021-08-02] MEDS: Spironolactone 100 MG TAB PO SCH (08:48)
[2021-08-02] MEDS: cefTRIAXone\\ROCEPHIN 2 GM in Sodium Chloride 0.9% 100 ML IVPB SCH (08:49)
[2021-08-02] MEDS: Folic Acid 1 MG TAB PO SCH (08:49)
[2021-08-02] MEDS: Ondansetron ODT 4 MG TAB PO PRN ×2 (08:49→19:38)
[2021-08-02] MEDS: Furosemide 40 MG TAB PO SCH (08:49)
[2021-08-02] MEDS: traMADol HCl 50 MG TAB PO PRN (19:39)
[2021-08-03 08:17] VITALS: BP 116/69; TEMP 98.7
[2021-08-03] MEDS: Furosemide 40 MG TAB PO SCH (08:26)
[2021-08-03] MEDS: Spironolactone 100 MG TAB PO SCH (08:26)
[2021-08-03] MEDS: Folic Acid 1 MG TAB PO SCH (08:26)
== END 2021-08-03 12:15 | disposition home or self-care (01) | DRG 394 ==
LOC: T4-A 11:28
PROVIDERS: ADMIT Family Medicine; ATTEND Internal Medicine
PROC: 0DJ08ZZ Inspection of Upper Intestinal Tract, Via Natural or Artificial Opening Endoscopic (ICD-10-PCS; principal; 2021-08-02)
DX: K91.89 Other postprocedural complications and disorders of digestive system (principal); D62 Acute posthemorrhagic anemia; K70.31 Alcoholic cirrhosis of liver with ascites; D69.6 Thrombocytopenia, unspecified; F17.210 Nicotine dependence, cigarettes, uncomplicated; F12.90 Cannabis use, unspecified, uncomplicated; R16.0 Hepatomegaly, not elsewhere classified; N64.9 Disorder of breast, unspecified; Z20.822 Contact with and (suspected) exposure to COVID-19; Y83.8 Other surgical procedures as the cause of abnormal reaction of the patient, or of later complication, without mention of misadventure at the time of the procedure; Z88.5 Allergy status to narcotic agent; Z79.899 Other long term (current) drug therapy; Z90.49 Acquired absence of other specified parts of digestive tract; Z98.890 Other specified postprocedural states; Z91.19 Patient's noncompliance with other medical treatment and regimen
CPT/HCPCS: 36415; 71045; 76140; 80053; 80061; 80306; 82274; 82607; 82746; 83036; 83735; 83880; 84443; 84703; 85014; 85018; 85025; 85610; 85730; 86850; 86900; 86901; 87449; 87899; C9113; J0696; J2405; J2704; J3010; J3411; J3490; Q0162; U0003; U0005

== ENCOUNTER 2021-11-12 19:22 | Emergency (ER) | payer SELFPAY ==
[2021-11-12 20:16] LABS: #Eosinphils 0.1 thou/uL (0.0-0.7); #Lymphocytes 1.2 thou/uL (1.20-3.40); #Monocytes 0.3 thou/uL (0.11-0.59); #Neutrophils 2.8 thou/uL (1.40-6.50); %Basophils 0.6 % (0.0-1.0); %Eosinophils 2.5 % (0.0-10.0); %Monocytes 6.6 % (0.0-10.0); %Neutrophils 63.3 % (42.0-75.0); Hemoglobin 10.4 g/dL (12.0-16.0); Mean Corpuscular HGB CONC 30.5 g/dL (32.0-36.0); Mean Corpuscular Hemoglobin 23.4 pg (27.0-31.0); Mean Corpuscular Volume 76.7 fL (78.0-98.0); Mean Platelet Volume 11.5 fL (7.4-10.4); Platelet Count 206 thou/uL (130-400); RBC Distribution Width 20.3 % (11.5-14.5); Red Blood Cell (RBC) Count 4.43 mill/uL (4.20-5.40); White Blood Cell (WBC) Count 4.4 thou/uL (4.8-10.8)
[2021-11-12 20:40] LABS: ALT (SGPT) 15 U/L (8-55); AST (SGOT) 27 U/L (5-34); Albumin 3.6 g/dL (3.5-5.0); Alkaline Phosphatase 159 U/L (40-110); Anion Gap 10 mmol/L (10-20); BUN (Urea Nitrogen) 17 mg/dL (7.0-18.7); Bilirubin, Total 0.3 mg/dL (0.2-1.2); Calc. Creatinine Clearance 0 mL/min (70-130); Carbon Dioxide 25 mmol/L (22-29); Chloride 109 mmol/L (98-107); Estimated GFR 105; Globulin 3.7 g/dL (2.4-3.5); Glucose 80 mg/dL (70-105); Potassium 3.5 mmol/L (3.5-5.1); Protein, Total 7.3 g/dL (6.0-8.3); Sodium 140 mmol/L (136-145)
== END 2021-11-12 22:40 | disposition home or self-care (01) ==
LOC: ERS 19:22
DX: T67.5XXA Heat exhaustion, unspecified, initial encounter (principal); E86.0 Dehydration
CPT/HCPCS: 36415; 36416; 80053; 82550; 85025; 93005

== ENCOUNTER 2021-12-31 11:20 | Emergency (ER) | payer SELFPAY ==
[~2021-12-31 11:20] MED LIST changes: -Iopamidol 370 76% 100 ML VIAL ONE; +Iopamidol-370 76% 500 ML 1 ML ONE
[2021-12-31] MEDS ORDERED: Boostrix 0.5 ML (Tdap) VIAL (>/=7 yrs of age) ONE (12:38)
[2021-12-31] MEDS ORDERED: Mag-Al 1200 mg/1200 mg/30 ML UDCUP ONE (14:49)
[2021-12-31] MEDS ORDERED: Lidocaine Viscous Sol 2% 15 ml UD Cup ONE (14:49)
== END 2021-12-31 15:28 | disposition home or self-care (01) ==
LOC: ERS 11:20
DX: S00.83XA Contusion of other part of head, initial encounter (principal); S80.211A Abrasion, right knee, initial encounter; F17.210 Nicotine dependence, cigarettes, uncomplicated; Y04.2XXA Assault by strike against or bumped into by another person, initial encounter
CPT/HCPCS: 70450; 70486; 71260; 72125; 74177; 90471; 90715; Q9967